=== PATIENT | female | born 1965 | race American Indian/Alaskan Native ===

== ENCOUNTER 2018-08-16 12:04 | Emergency (ER) | payer OTHER ==
--- NOTE | 2018-08-16 12:20 | Emergency Department Report ---
Blank Doc - Documentation Documentation: This is a 52-year-old female that presents with right knee, ankle and foot pain status post fall. Stated tripped about 6 stairs. Denies any head or back injuries or pain. Denies any other complaints. This initial assessment diagnostic orders/clinical plan/treatment(s) is/are subject to change based on patient's health status, clinical progression and re- assessment by fellow clinical providers in the ED. Further treatment and workup at subsequent clinical providers discretion. Patient/guardians urged not to elope from ED s their condition may be serious if not clinically assessed and managed. Initial orders include: 1-Patient sent to [facility] for further evaluation and treatment 2- xray
--- NOTE | 2018-08-16 13:28 | XRay Report ---
RIGHT ANKLE RADIOGRAPHS INDICATION: Pain, status post fall. COMPARISON: None similar. FINDINGS: AP, lateral and oblique right ankle radiographs suggest approximately 6 mm ossific density at the distal talar tip dorsally, questioned for an avulsion injury. Mild overlying soft tissue swelling also not excluded. Intact remainder ankle articulation. Tiny plantar calcaneal spur. CONCLUSION: Right distal talar dorsal tip subtle acute avulsion fracture not excluded, as described. Directed clinical correlation recommended. Thank you for the opportunity to participate in this patient's care.
[2018-08-16] MEDS ORDERED: IBUPROFEN PO ONE (14:33)
--- NOTE | 2018-08-16 14:42 | XRay Report ---
RIGHT KNEE RADIOGRAPHS INDICATION: Pain, status post fall. COMPARISON: None similar. FINDINGS: AP, oblique and lateral right knee radiographs demonstrate intact articulation on the frontal view. No suprapatellar effusion on the lateral view with Insall Salvati ratio of 1.5. CONCLUSION: No acute right knee radiographic abnormality, though patella pancho questioned, as described. Please correlate. Thank you for the opportunity to participate in this patient's care.
--- NOTE | 2018-08-16 14:46 | XRay Report ---
RIGHT FOOT RADIOGRAPHS INDICATION: Pain, status post fall. COMPARISON: None similar. FINDINGS: AP, lateral and oblique right foot radiographs suggest mild hallux valgus. Intact overall bony articulation. However, approximately 6 mm ossific density at the distal talar tip dorsally is questionable for an avulsion injury. Mild overlying soft tissue swelling also not entirely excluded. Tiny plantar calcaneal spur. CONCLUSION: Subtle right distal talar dorsal tip acute avulsion fracture not entirely excluded with few other findings, as described. Please correlate. Thank you for the opportunity to participate in this patient's care.
--- NOTE | 2018-08-16 15:42 | Emergency Department Report ---
ED Fall HPI - General Chief Complaint: Fall Stated Complaint: FELL DOWN STEPS Time Seen by Provider: 08/16/18 12:19 Source: patient Mode of arrival: Ambulatory - History of Present Illness Initial Comments: This is a 52 female here reported that she fell and injured her right knee, ankle and right great toe. She said this happened yesterday. Pain is 8 out of 10 and aching. Torso movement but her wrists. No medication taken. MD Complaint: fall Onset/Timin -: days(s) Fall From: standing When Fall Occurred: 1-3 hours [employer], other (yesterday) Fall Witnessed: yes, by family Place Fall Occurred: home Loss of Consciousness: none Prolonged Down Time?: no Symptoms Prior to Fall: none Location - Extremities: Right: Knee, Ankle, Foot (reports that great toe) Severity: moderate Severity scale (0 -10): 5 Quality: aching Context: tripped/slipped Associated Symptoms: other (reports limping due to pain). denies: headache, neck pain, numbness, weakness, chest paint, shortness of breath, abdominal pain, hematuria, unable to walk, lightheaded, vertigo, confusion - Related Data Previous Rx's Medication Instructions Recorded Last Taken Type HYDROcodone/APAP 5-325 [[place] 1 each PO Q6HR PRN #10 tablet 01/30/16 Unknown Rx 5/325] Ibuprofen [Motrin] 600 mg PO Q8H PRN #12 tablet 08/16/18 Unknown Rx traMADol [Ultram 50 MG tab] 50 mg PO Q6HR PRN #12 tablet 08/16/18 Unknown Rx Allergies Allergy/AdvReac Type Severity Reaction Status Date / Time Sulfa (Sulfonamide Allergy Unknown Verified 01/29/16 18:43 Antibiotics) ED Review of Systems ROS: Stated complaint: FELL DOWN STEPS Other details as noted in HPI Constitutional: denies: chills, fever Eyes: denies: eye pain Respiratory: denies: cough, shortness of breath, wheezing Cardiovascular: denies: chest pain, palpitations, edema, syncope Gastrointestinal: denies: abdominal pain, nausea, vomiting Musculoskeletal: joint swelling, arthralgia. denies: back pain, myalgia Skin: denies: rash Neurological: denies: headache, weakness, numbness, paresthesias, abnormal gait, vertigo ED Past Medical Hx - Past Medical History Previous Medical History?: No - Surgical History Past Surgical History?: Yes Additional Surgical History: tubal ligation - Family History Family history: hypertension - Social History Smoking Status: Never Smoker Substance Use Type: None - Medications Home Medications: Home Medications Medication Instructions Recorded Confirmed Last Taken Type HYDROcodone/APAP 5-325 [[place] 1 each PO Q6HR PRN #10 tablet 01/30/16 Unknown Rx 5/325] Ibuprofen [Motrin] 600 mg PO Q8H PRN #12 tablet 08/16/18 Unknown Rx traMADol [Ultram 50 MG tab] 50 mg PO Q6HR PRN #12 tablet 08/16/18 Unknown Rx ED Physical Exam - General Limitations: No Limitations General appearance: alert, in no apparent distress - Head Head exam: Present: atraumatic, normocephalic, normal inspection, other (normal exam) - Eye Eye exam: Present: normal appearance, PERRL, EOMI Pupils: Present: normal accommodation - ENT ENT exam: Present: normal exam, normal orophraynx, mucous membranes moist - Neck Neck exam: Present: normal inspection, full ROM, other (no C-spine tenderness). Absent: tenderness, meningismus, lymphadenopathy - Respiratory Respiratory exam: Present: normal lung sounds bilaterally. Absent: respiratory distress, chest wall tenderness - Cardiovascular Cardiovascular Exam: Present: regular rate, normal rhythm, normal heart sounds - GI/Abdominal GI/Abdominal exam: Present: soft, normal bowel sounds. Absent: distended, tenderness, guarding, rebound, rigid - Extremities Exam Extremities exam: Present: normal inspection, full ROM, tenderness (tenderness to right ankle at Talar bone area proximally), normal capillary refill, other (my extremity physical exam except patient with tenderness to right Talar area). Absent: pedal edema, joint swelling, calf tenderness - Expanded Lower Extremity Exam Right Hip exam: Present: normal inspection, full ROM, pelvic stability. Absent: tenderness, swelling, abrasion, laceration, ecchymosis, deformity, crepidus, dislocation, erythema, external rotation, internal rotation, shortening Upper Leg exam: Present: normal inspection, full ROM. Absent: tenderness, swelling, abrasion, laceration, ecchymosis, deformity, crepidus, dislocation, erythema Knee exam: Present: normal inspection, full ROM, full knee extension. Absent: tenderness, swelling, abrasion, laceration, ecchymosis, deformity, crepidus, dislocation, erythema, effusion, pain w/ pronation/supination, posterior draw sign, pain/laxity with valgus, pain/laxity with varus Lower Leg exam: Present: normal inspection, full ROM. Absent: swelling, abrasion, laceration, ecchymosis, deformity, crepidus, dislocation, erythema, palpable cord, Alicia's sign Ankle exam: Present: normal inspection, full ROM, tenderness (right Talar area). Absent: swelling, abrasion, laceration, ecchymosis, deformity, crepidus, dislocation, erythema Foot/Toe exam: Present: full ROM (pain to range of motion to right foot close the ankle dorsally), tenderness (to right great toe.). Absent: swelling, abrasion, laceration, ecchymosis, deformity, crepidus, dislocation, erythema, amputation, puncture wound, foreign body, calcaneal tenderness, tenderness at base of 5th metatarsal, nail avulsion, subungual hematoma Neuro vascular tendon exam: Present: no vascular compromise. Absent: pulse deficit, abnormal cap refill, motor deficit, sensory deficit, tendon deficit, extremity cold to touch, pallor, abnormal 2-point discrimination, decreased fine/light touch, foot drop, peroneal nerve deficit, significant pain with passive ROM of distal joint Gait: Positive: observed and limited by pain - Back Exam Back exam: Present: normal inspection, full ROM, other (ambulates without any difficulties). Absent: tenderness, CVA tenderness (R), CVA tenderness (L), muscle spasm, paraspinal tenderness, vertebral tenderness, rash noted - Neurological Exam Neurological exam: Present: alert, oriented X3, normal gait, reflexes normal (No cce. + 2 pulses in all extremities, no neurovascular compromise). Absent: motor sensory deficit ED Course Vital Signs 08/16/18 08/16/18 08/16/18 12:19 14:55 17:17 Temperature 97.9 F Pulse Rate 80 80 Respiratory 16 15 18 Rate Blood Pressure 152/77 Blood Pressure 148/85 [Right] O2 Sat by Pulse 100 98 Oximetry - Reevaluation(s) Reevaluation #1: 08/16/18 16:23 Patient given ibuprofen 800 mg by mouth for pain in she was really for pain. See procedure note for splinting - Orthopedic Splinting/Casting Injury #1 Side: right Upper Extremity Immobilizer: Chirag wrap Lower Extremity Injury Location: knee (Chirag wrap), foot (postop shoe) Lower Extremity Immobilizer: stirrup splint (right ankle), Chirag wrap (right ankle) Other Orthopedic Equipment: crutches Additional Comments: Patient did not feel like she needed crutches. Pulses 2+ and bounding to lower extremities ED Medical Decision Making - Radiology Data Radiology results: report reviewed X-ray of knee, foot and ankle on the right side dictated by radiologist report reviewed by myself. Please see report below Findings [address] [address] XRay Report Signed Patient: KATARZYNA JARRETT MR#: [id number] : 1965 Acct:[id number] Age/Sex: 52 / F ADM Date: 08/16/18 Loc: ED Attending Dr: Ordering Physician: ISAK GAY NP Date of Service: 08/16/18 Procedure(s): XR ankle 3+V RT Accession Number(s): [id number] cc: ISAK GAY NP Fluoro Time In Minutes: RIGHT ANKLE RADIOGRAPHS INDICATION: Pain, status post fall. COMPARISON: None similar. FINDINGS: AP, lateral and oblique right ankle radiographs suggest approximately 6 mm ossific density at the distal talar tip dorsally, questioned for an avulsion injury. Mild overlying soft tissue swelling also not excluded. Intact remainder ankle articulation. Tiny plantar calcaneal spur. CONCLUSION: Right distal talar dorsal tip subtle acute avulsion fracture not excluded, as described. Directed clinical correlation recommended. Thank you for the opportunity to participate in this patient's care. Transcribed By: RS Dictated By: SARA CONRAD MD Electronically Authenticated By: SARA CONRAD MD Signed Date/Time: 08/16/18 1329 DD/ 1324 TD/TT: 08/16/18 [address] [address] XRay Report Signed Patient: KATARZYNA JARRETT MR#: [id number] : 1965 Acct:[id number] Age/Sex: 52 / F ADM Date: 08/16/18 Loc: ED Attending Dr: Ordering Physician: ISAK GAY NP Date of Service: 08/16/18 Procedure(s): XR knee 3V RT Accession Number(s): [id number] cc: ISAK GAY NP Fluoro Time In Minutes: RIGHT KNEE RADIOGRAPHS INDICATION: Pain, status post fall. COMPARISON: None similar. FINDINGS: AP, oblique and lateral right knee radiographs demonstrate intact articulation on the frontal view. No suprapatellar effusion on the lateral view with Insall Salvati ratio of 1.5. CONCLUSION: No acute right knee radiographic abnormality, though patella pancho questioned, as described. Please correlate. Thank you for the opportunity to participate in this patient's care. Transcribed By: RS Dictated By: SARA CONRAD MD Electronically Authenticated By: SARA CONRAD MD Signed Date/Time: 08/16/18 1442 DD/ 1441 TD/TT: 08/16/18 1442 Findings [facility] [address] [place] [address] XRay Report Signed Patient: KATARZYNA JARRETT MR#: [id number] : 1965 Acct:[id number] Age/Sex: 52 / F ADM Date: 08/16/18 Loc: ED Attending Dr: Ordering Physician: ISAK GAY NP Date of Service: 08/16/18 Procedure(s): XR foot 3+V RT Accession Number(s): [id number] cc: ISAK GAY NP Fluoro Time In Minutes: RIGHT FOOT RADIOGRAPHS INDICATION: Pain, status post fall. COMPARISON: None similar. FINDINGS: AP, lateral and oblique right foot radiographs suggest mild hallux valgus. Intact overall bony articulation. However, approximately 6 mm ossific density at the distal talar tip dorsally is questionable for an avulsion injury. Mild overlying soft tissue swelling also not entirely excluded. Tiny plantar calcaneal spur. CONCLUSION: Subtle right distal talar dorsal tip acute avulsion fracture not entirely excluded with few other findings, as described. Please correlate. Thank you for the opportunity to participate in this patient's care. Transcribed By: RS Dictated By: SARA CONRAD MD Electronically Authenticated By: SARA CONRAD MD Signed Date/Time: 08/16/18 1446 DD/ 1443 TD/TT: 08/16/18 1446. The. With also withheld: The mom there any MORE OF MALAISE N GO GO OVER THERE ARE 1 RETINOLOGIST JUST GO BACK TO [place] WITH ALL GIRL with some base of the per minute abdomen Mentioned this ventricular light with Allis not going on for pain or drainage free of those results with the brain contusion S and had. Fluoroscopy [place]. - Medical Decision Making Patient status post fall with complaint of right knee pain, right ankle pain and right great toe pain. She had x-rays done and x-ray dictated by radiologist report reviewed by myself and she has normal x-ray of right knee and great toe revealed no fracture or soft tissue swelling/dislocation. Subtle right distal talar dorsal tip acute avulsion fracture not entirely excluded with few other fi ndings, as described. Please correlate. Patient was given Motrin 800 mg by mouth emergency room relief of pain. Please see seizure note for splint in detail. Her pains better and discharged home with prescription for Motrin and to follow-up with orthopedic doctor - Differential Diagnosis FX, dislocation, contusion, MSK pain Critical care attestation.: If time is entered above; I have spent that time in minutes in the direct care of this critically ill patient, excluding procedure time. ED Disposition Clinical Impression: Arthralgia of multiple sites Fracture of talus of right ankle, closed Qualifiers: Encounter type: initial encounter Fracture morphology: avulsion Fracture alignment: displaced Qualified Code(s): S92.151A - Displaced avulsion fracture (chip fracture) of right talus, initial encounter for closed fracture Fall, accidental Qualifiers: Encounter type: initial encounter Qualified Code(s): W19.XXXA - Unspecified fall, initial encounter Disposition: DC-01 TO HOME OR SELFCARE Is pt being admited?: No Does the pt Need Aspirin: No Condition: Stable Instructions: Crutch Instructions (ED), Foot Fracture in Adults (ED), Knee Pain (ED), Arthralgia (ED), Knee Exercises (GEN), RICE Therapy (ED) Additional Instructions: Please see discharge instruction in crutches and race therapy Follow-up with orthopedic doctor as instructed Take Ultram for severe pain and please not drive or operate heavy machinery while taking this medicine because it causes drowsiness and he can take Motrin for mild to moderate pain. Prescriptions: Ibuprofen [Motrin] 600 mg PO Q8H PRN #12 tablet PRN Reason: Pain traMADol [Ultram 50 MG tab] 50 mg PO Q6HR PRN #12 tablet PRN Reason: Pain Referrals: ELBERT HUNTERATWOOD MD ADELIA [Primary Care Provider] - 08/18/18 SHERYL BLACKMAN MD [Staff Physician] - 08/18/18 Forms: Work/School Release Form(ED)
[2018-08-16 17:17] VITALS: BP 148/85
== END 2018-08-16 17:18 | disposition home or self-care (01) ==
LOC: ED 12:04
DX: S92.151A Displaced avulsion fracture (chip fracture) of right talus, initial encounter for closed fracture (principal); Z98.51 Tubal ligation status; W18.30XA Fall on same level, unspecified, initial encounter; Y93.89 Activity, other specified; Y92.89 Other specified places as the place of occurrence of the external cause; Y99.8 Other external cause status

== ENCOUNTER 2022-01-30 07:27 | Emergency (ER) | payer OTHER ==
[2022-01-30] MEDS ORDERED: predniSONE 20 MG TAB PO ONE (10:03)
[2022-01-30] MEDS ORDERED: oxyCODONE /ACETAMINOPHEN 5-325MG TAB PO ONE (10:03)
[2022-01-30] MEDS ORDERED: KETOROLAC 10 MG TAB PO ONE (10:03)
--- NOTE | 2022-01-30 10:26 | Emergency Department Report ---
ED ENT HPI - General Chief complaint: Dental/Oral Stated complaint: TOOTHACHE Time Seen by Provider: 01/30/22 09:44 Source: patient Mode of arrival: Ambulatory Limitations: No Limitations - History of Present Illness Initial comments: 56-year-old black female with no past medical history presents emergency department for evaluation of dental pain. She states that she had to cavities filled to her right upper teeth 2 months ago, and since then she has had intermittent pain to the area. She states that over the last week pain has become severe and it feels like someone is putting a needle through her nerve area. She denies fever or swelling. She states that she has an appointment to see the dentist on Tuesday or but states that pain has been unbearable and presented to the ER for pain management. MD complaint: tooth pain -: Gradual, days(s) (4-5) Location: tooth # (2 and 3) Severity: severe Severity scale (0 -10): 10 Quality: aching Consistency: constant Associated Symptoms: toothache. denies: fever, cough, gum swelling, pain with swallowing, sore throat, tinnitus, hearing loss, discharge from ear, rhinorrhea - Related Data Previous Rx's Medication Instructions Recorded Last Taken Type HYDROcodone/APAP 5-325 [[place] 1 each PO Q6HR PRN #10 tablet 01/30/16 Unknown Rx 5/325] Ibuprofen [Motrin] 600 mg PO Q8H PRN #12 tablet 08/16/18 Unknown Rx traMADoL [Ultram 50 MG tab] 50 mg PO Q6HR PRN #12 tablet 08/16/18 Unknown Rx Acetaminophen/Codeine [Tylenol 1 tab PO Q6H PRN #12 tab 01/30/22 Unknown Rx /Codeine # 3 tab] Ketorolac [Toradol] 10 mg PO Q6H PRN #12 tab 01/30/22 Unknown Rx Allergies Allergy/AdvReac Type Severity Reaction Status Date / Time Sulfa (Sulfonamide Allergy Unknown Verified 01/30/22 07:34 Antibiotics) ED Dental HPI - General Chief complaint: Dental/Oral Stated complaint: TOOTHACHE Time Seen by Provider: 01/30/22 09:44 Source: patient Mode of arrival: Ambulatory Limitations: No Limitations - Related Data Previous Rx's Medication Instructions Recorded Last Taken Type HYDROcodone/APAP 5-325 [[place] 1 each PO Q6HR PRN #10 tablet 01/30/16 Unknown Rx 5/325] Ibuprofen [Motrin] 600 mg PO Q8H PRN #12 tablet 08/16/18 Unknown Rx traMADoL [Ultram 50 MG tab] 50 mg PO Q6HR PRN #12 tablet 08/16/18 Unknown Rx Acetaminophen/Codeine [Tylenol 1 tab PO Q6H PRN #12 tab 01/30/22 Unknown Rx /Codeine # 3 tab] Ketorolac [Toradol] 10 mg PO Q6H PRN #12 tab 01/30/22 Unknown Rx Allergies Allergy/AdvReac Type Severity Reaction Status Date / Time Sulfa (Sulfonamide Allergy Unknown Verified 01/30/22 07:34 Antibiotics) ED Review of Systems ROS: Stated complaint: TOOTHACHE Other details as noted in HPI Comment: All other systems reviewed and negative Constitutional: denies: fever Eyes: denies: eye pain ENT: dental pain Respiratory: denies: shortness of breath Cardiovascular: denies: chest pain, palpitations Gastrointestinal: denies: abdominal pain, nausea, vomiting Neurological: denies: headache ED Past Medical Hx - Surgical History Additional Surgical History: tubal ligation - Social History Smoking Status: Never Smoker Substance Use Type: None - Medications Home Medications: Home Medications Medication Instructions Recorded Confirmed Last Taken Type HYDROcodone/APAP 5-325 [[place] 1 each PO Q6HR PRN #10 tablet 01/30/16 Unknown Rx 5/325] Ibuprofen [Motrin] 600 mg PO Q8H PRN #12 tablet 08/16/18 Unknown Rx traMADoL [Ultram 50 MG tab] 50 mg PO Q6HR PRN #12 tablet 08/16/18 Unknown Rx Acetaminophen/Codeine [Tylenol 1 tab PO Q6H PRN #12 tab 01/30/22 Unknown Rx /Codeine # 3 tab] Ketorolac [Toradol] 10 mg PO Q6H PRN #12 tab 01/30/22 Unknown Rx ED Physical Exam - General Limitations: No Limitations General appearance: alert, in no apparent distress - Head Head exam: Present: atraumatic, normocephalic - Eye Eye exam: Present: normal appearance. Absent: conjunctival injection - Expanded ENT Exam Expanded Teeth exam: Present: dental tenderness # (Gums surrounding tooth numbers 2 and 3. No erythema or abscess noted) Throat exam: Positive: normal inspection - Neck Neck exam: Present: normal inspection. Absent: tenderness, lymphadenopathy - Respiratory Respiratory exam: Absent: respiratory distress - Cardiovascular Cardiovascular Exam: Present: regular rate - GI/Abdominal GI/Abdominal exam: Absent: distended, tenderness - Extremities Exam Extremities exam: Present: normal inspection - Back Exam Back exam: Present: normal inspection - Neurological Exam Neurological exam: Present: alert, oriented X3 - Psychiatric Psychiatric exam: Present: normal affect, normal mood - Skin Skin exam: Present: warm, dry, intact, normal color ED Course Vital Signs 01/30/22 01/30/22 07:31 10:25 Temperature 97.7 F 98.4 F Pulse Rate 81 72 Respiratory 18 16 Rate Blood Pressure 176/75 161/94 [Left] O2 Sat by Pulse 99 100 Oximetry ED Medical Decision Making - Medical Decision Making 56-year-old black female with no past medical history presents emergency department for evaluation of dental pain. She states that she had to cavities filled to her right upper teeth 2 months ago, and since then she has had intermittent pain to the area. She states that over the last week pain has become severe and it feels like someone is putting a needle through her nerve area. She denies fever or swelling. She states that she has an appointment to see the dentist on Tuesday or but states that pain has been unbearable and presented to the ER for pain management. Physical exam consistent with dental pain without abscess noted. Patient will be treated in the emergency department with one-time dose of Percocet, Toradol, and prednisone then discharged home with Toradol and Tylenol 3 to use as needed. She is advised to follow-up with dentist on Tuesday as planned and return to the emergency department as needed. She verbalizes understanding of and agreement with plan of care. Critical care attestation.: If time is entered above; I have spent that time in minutes in the direct care of this critically ill patient, excluding procedure time. ED Disposition Clinical Impression: Pain, dental Disposition: HOME / SELF CARE / HOMELESS Is pt being admited?: No Does the pt Need Aspirin: No Condition: Stable Instructions: Preventive Dental Care, Adult Additional Instructions: Take medications as prescribed. Follow-up with dentist as planned. Return to the emergency department as needed. Prescriptions: Ketorolac [Toradol] 10 mg PO Q6H PRN #12 tab PRN Reason: Pain Acetaminophen/Codeine [Tylenol /Codeine # 3 tab] 1 tab PO Q6H PRN #12 tab PRN Reason: Pain , Severe (7-10) Referrals: [facility] [Outside] - 3-5 Days Time of Disposition: 10:26
[2022-01-30 10:31] VITALS: BP 161/94
== END 2022-01-30 10:37 | disposition home or self-care (01) ==
LOC: ED 07:27
DX: K08.89 Other specified disorders of teeth and supporting structures (principal)
CPT/HCPCS: 99282